=== PATIENT | female | born 1960 ===

== ENCOUNTER 2020-08-11 10:30 | Inpatient (IN) | payer OTHER ==
[~2020-08-11] VITALS: Ht 152.4 cm; Wt 68.9 kg
[2020-08-11] MEDS ORDERED: CRESTOR20 MG PO (13:59)
[2020-08-11] MEDS ORDERED: ZESTRIL10 M1 PO (13:59)
[2020-08-11] MEDS ORDERED: METFORMIN HCL500 M3 PO (13:59)
[2020-08-11] MEDS ORDERED: MAXIMUM D3325 MCG PO (14:00)
[2020-08-20] MEDS ORDERED: HYOSCYAMINE0.125 M1 SL (13:33)
[2020-08-20] MEDS ORDERED: OXYC1TAB9 PO (13:34)
== END 2020-08-20 18:13 | disposition home or self-care (01) | DRG 331 ==
LOC: SURH 08-17 10:30 → O/R 08-17 10:42 → SURH 08-17 14:45
PROVIDERS: ADMIT Surgery; ATTEND Surgery
PROC: 0DBN4ZZ Excision of Sigmoid Colon, Percutaneous Endoscopic Approach (ICD-10-PCS; 2020-08-17)
PROC: 07BC4ZX Excision of Pelvis Lymphatic, Percutaneous Endoscopic Approach, Diagnostic (ICD-10-PCS; 2020-08-17)
PROC: 0DJD8ZZ Inspection of Lower Intestinal Tract, Via Natural or Artificial Opening Endoscopic (ICD-10-PCS; 2020-08-17)
PROC: 0DTP4ZZ Resection of Rectum, Percutaneous Endoscopic Approach (ICD-10-PCS; principal; 2020-08-17 14:45)
DX: C19 Malignant neoplasm of rectosigmoid junction (principal); E11.9 Type 2 diabetes mellitus without complications; E55.9 Vitamin D deficiency, unspecified; E78.00 Pure hypercholesterolemia, unspecified